=== PATIENT | female | born 1990 | race Caucasian/White ===

== ENCOUNTER 2022-12-22 23:16 | Observation (INO) ==
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
[2022-12-22] MEDS ORDERED: NS 1,000 ML IV 1,000 ML IV ONE (23:57)
[2022-12-22] MEDS ORDERED: COMPAZINE INJ IVP ONE (23:57)
[2022-12-23] MEDS ORDERED: NS 1,000 ML IV 1,000 ML ONE (00:24)
[2022-12-23] MEDS ORDERED: COMPAZINE INJ ONE (00:24)
[2022-12-23 00:33] LABS: BASOPHILS # (AUTO) 0.2 X10^3/uL (0.0-0.1); BASOPHILS % (AUTO) 2.3 % (0.2-1.0); EOSINOPHILS % (AUTO) 0.5 % (0.9-2.9); HEMATOCRIT 39.3 % (36.0-47.0); HEMOGLOBIN 13.7 g/dL (12.0-16.0); LYMPHOCYTES # (AUTO) 1.1 X10^3/uL (1.3-2.9); LYMPHOCYTES % (AUTO) 10.8 % (21.0-51.0); MEAN CORPUSCULAR HEMOGLOBIN 29.4 pg (27.0-34.0); MEAN CORPUSCULAR HGB CONC 34.8 g/dL (33.0-35.0); MEAN CORPUSCULAR VOLUME 84.4 fL (80.0-100.0); MEAN PLATELET VOLUME 7.5 fL (7.4-11.0); MONOCYTES # (AUTO) 0.3 x10^3/uL (0.3-0.8); MONOCYTES % (AUTO) 3.2 % (0.0-13.0); NEUTROPHILS # (AUTO) 8.2 x10^3/uL (2.2-4.8); NEUTROPHILS % (AUTO) 83.2 % (42.0-75.0); RED BLOOD COUNT 4.65 X10^6/uL (3.5-5.4); WHITE BLOOD COUNT 9.9 X10^3/uL (3.6-10.0)
[2022-12-23] MEDS ORDERED: DEMEROL INJ IVP ONE (00:33)
[2022-12-23] MEDS ORDERED: DEMEROL INJ ONE (00:36)
[2022-12-23 00:45] LABS: ALANINE AMINOTRANSFERASE 35 Units/L (12-78); ALKALINE PHOSPHATASE 64 Units/L (46-116); AMYLASE 38 Units/L (25-115); ASPARTATE AMINO TRANSFERASE 22 Units/L (15-37); BLOOD UREA NITROGEN 14 mg/dL (7-18); CALCIUM 8.4 mg/dL (8.5-10.1); CARBON DIOXIDE 28.3 mmol/L (21-32); CHLORIDE 101 mmol/L (98-107); CREATININE 0.62 mg/dL (0.55-1.02); LIPASE 112 Units/L (73-393); SODIUM 137 mmol/L (136-145); TOTAL PROTEIN 7.4 g/dL (6.4-8.2); eGFR NON BLACK RACES > 60 (>60)
[2022-12-23 02:26] LABS: BILIRUBIN,URINE NEGATIVE (NEGATIVE); BLOOD/HEMOGLOBIN,URINE 1+ (NEGATIVE); GLUCOSE, URINE NEGATIVE (NEGATIVE); KETONES,URINE 4+ (NEGATIVE); LEUKOCYTE ESTERASE ,URINE NEGATIVE (NEGATIVE); NITRITES,URINE NEGATIVE (NEGATIVE); PROTEIN,URINE 2+ (NEGATIVE); UROBILINOGEN,URINE NORMAL (NORMAL)
[2022-12-23 02:29] LABS: APPEARANCE,URINE CLEAR (CLEAR); COLOR,URINE YELLOW (YELLOW)
[2022-12-23 02:30] LABS: BACTERIA,URINE NEGATIVE /HPF (NEGATIVE); RBC,URINE 0-2 /HPF (0-3); SQUAMOUS EPITHELIAL CELL,UR FEW /HPF (NEGATIVE)
[2022-12-23] MEDS ORDERED: D5 1/2 NS 1,000 ML 1,000 ML IV SCH ×2 (02:38→15:00)
[2022-12-23] MEDS ORDERED: ZOFRAN INJ 4 MG VIAL IVP PRN ×3 (02:38→14:46)
[2022-12-23] MEDS ORDERED: DEMEROL INJ IVP PRN (02:38)
[2022-12-23] MEDS: D5 1/2 NS 1,000 ML 1,000 ML IV SCH ×2 (09:01→11:04)
[2022-12-23] MEDS ORDERED: BACTROBAN TOPICAL OINT ONE (13:07)
[2022-12-23] MEDS ORDERED: POLYMYXIN B SULFATE ONE (13:07)
[2022-12-23] MEDS ORDERED: FENTANYL VIAL INJ 250 mcg ONE (13:08)
[2022-12-23] MEDS ORDERED: VERSED ONE (13:09)
[2022-12-23] MEDS ORDERED: QUELICIN (OR ANECTINE) ONE (13:09)
[2022-12-23] MEDS ORDERED: REGLAN INJ 10 MG VIAL ONE (13:09)
[2022-12-23] MEDS ORDERED: TORADOL 30 MG VIAL ONE (13:09)
[2022-12-23] MEDS ORDERED: DIPRIVAN VIAL 20 ML ONE (13:09)
[2022-12-23] MEDS ORDERED: ZEMURON 100 MG VIAL ONE (13:09)
[2022-12-23] MEDS ORDERED: BRIDION ONE (13:09)
[2022-12-23] MEDS ORDERED: ZOFRAN INJ 4 MG VIAL ONE (13:09)
[2022-12-23] MEDS ORDERED: LR 1,000 ML IV 1,000 ML IV ONE (13:13)
[2022-12-23 13:18] VITALS: BMI 22.4
[2022-12-23] MEDS ORDERED: CLEOCIN 600 MG IV PREMIX 600 MG/50 ML BAG IV ONE (13:32)
[2022-12-23] MEDS ORDERED: SUPRANE ONE (13:43)
[2022-12-23] MEDS ORDERED: BENADRYL INJ 50 MG VIAL IVP PRN (14:36)
[2022-12-23] MEDS ORDERED: REGLAN INJ 10 MG VIAL IVP PRN (14:36)
[2022-12-23] MEDS ORDERED: BARHEMSYS INJ IVP PRN (14:36)
[2022-12-23] MEDS ORDERED: DILAUDID INJ IVP PRN (14:43)
[2022-12-23] MEDS: DILAUDID INJ IVP PRN ×2 (14:48→14:53)
[2022-12-23 17:23] VITALS: BP 102/64
[2022-12-23] MEDS ORDERED: CLEOCIN 600 MG IV PREMIX 600 MG/50 ML BAG IV SCH (22:00)
== END 2022-12-23 17:30 | disposition home or self-care (01) ==
LOC: MED/SURG 23:20 → ER 23:20 → MED/SURG 12-23 02:29
PROVIDERS: ADMIT Surgery; ATTEND Surgery
DX: R10.84 Generalized abdominal pain; R11.2 Nausea with vomiting, unspecified; R10.11 Right upper quadrant pain; K80.01 Calculus of gallbladder with acute cholecystitis with obstruction

== ENCOUNTER 2022-12-26 10:08 | Observation (INO) ==
[2022-12-26 10:26] VITALS: BMI 21.2
[2022-12-26] MEDS ORDERED: ZOFRAN INJ 4 MG VIAL IVP ONE ×2 (10:29→12:00)
[2022-12-26] MEDS ORDERED: NS 1,000 ML IV 1,000 ML IV ONE (10:29)
[2022-12-26] MEDS ORDERED: ZOFRAN INJ 4 MG VIAL ONE ×2 (10:29→12:00)
[2022-12-26] MEDS ORDERED: NS 1,000 ML IV 1,000 ML ONE (10:30)
--- NOTE | 2022-12-26 10:33 | DR.NAUSEAF ---
HPI Time Seen Time Seen by Provider: 12/26/22 10:30 Primary Care Physician Primary Care Physician: Al Complaints Chief Complaint Doctors Comments: N/V AFTER CHOLECYSTECTOMY ON . SEEN IN [place] ER ON 12-24-[address] OF ABDOMEN AND PELVIS AND SOME FLUID WAS NOTED IN THE POSTOPERATIVE SAC. WAS GIVEN ZOFRAN IN ER AND SENT HOME. PATIENT CONTINUED TO HAVE N/V AND CALLED DR JOHNSON OFFICE AND THEY TOLD HER TO COME HER FOR FURTHER EVALUATION. PATIENT DENIES PAIN. Chief Complaint:: Patient states she had a [place] on Thursday and has been having nausea and vomiting multiple times per day. Seen [place] [facility] diagnosis with possi ble supected "leak" for bowel COVID-19 Coronavirus risk:travel/contact w/high risk person: No Has patient experienced Coronavirus symptoms: No Source History Provided: Patient Mode of Arrival Mode of Arrival: Ambulatory Timing Onset of Chief Complaint: 12/24/22 PMH PMH Past Medical History: No Past Surgical History: Yes Surgical History: Appendectomy, Cholecystectomy and MEDICAID NURSE Surgery Family History History of Family Medical Conditions: Yes Family Medical History: Diabetes Mellitus, Cancer, Coronary Artery Disease and Hypertension Social History Does patient currently use any type of tobacco product: Yes Have you used tobacco products in the last 12 months: Yes Type of Tobacco Use: Cigarettes Does any household member use tobacco: Yes Alcohol Use: None Do you use any recreational Drugs:: Yes (marijuana) Lives With: Spouse Lives Where: Home Travel Risk Coronavirus risk:travel/contact w/high risk person: No Has patient experienced Coronavirus symptoms: No Infectious screening In the last 2 months have you had wt loss of >10#?: NO Have you had fever, night sweats or hemotysis?: No Have you traveled outside the country in the last 6 months?: No Isolation: Standard ROS Review of Systems Constitutional: Other (NAUSEA AND VOMITING) Eyes: No Symptoms Reported ENTM: No Symptoms Reported Respiratoy: No Symptoms Reported Cardiovascular: No Symptoms Reported Gastrointestinal/Abdominal: Nausea and Vomiting Genitourinary: No Symptoms Reported Neurological: No Symptoms Reported Musculoskeletal: No Symptoms Reported Integumentary: No Symptoms Reported Hematologic/Lymphatic: No Symptoms Reported Endocrine: No Symptoms Reported Psychiatric: No Symptoms Reported PE Vital Signs Vitals: Temperature 98.3 F Pulse Rate 87 Respiratory Rate 16 Blood Pressure [Right Arm] 102/64 Blood Pressure 118/82 O2 Sat by Pulse Oximetry 100 General Limitations: No Limitations General Appearance: In Distress (MILD DISTRESS) Head Head Exam: Normal Inspection, Atraumatic and Normocephalic Eyes Eye exam: Normal Appearance, PERRL and EOMI ENT ENT Exam: Normal Exam, Normal Oropharynx and Normal External Ear Exam Neck Neck Exam: Normal Inspection, Full ROM and Trachea Midline Chest Chest Inspection: Normal Inspection and Symmetric Chest Wall Rise Respiratory Respiratory Exam: Normal Lung Sounds Bilat Respiratory Exam: Bilateral: Clear to Auscultation Cardiovascular Cardiovascular Exam: Regular Rate and Normal Rhythm Abdominal Exam Abdominal Exam: Normal Inspection, Normal Bowel Sounds and Soft Rectal Rectal Exam: Deferred External Exam: Female: Deferred Extremities Extremities Exam: Normal Inspection Back Back Exam: Normal Inspection and Full ROM Neurologic Neurological Exam: Alert, Oriented X3 and CN II-XII Intact Psychiatric Psychiatric Exam: Normal Affect and Normal Mood Skin Skin Exam: Warm, Dry and Intact MDM Differential Diagnosis Differential Diagnosis: Considerations may Include:: Gastritis and Other (BILE LEAK,INTRACTABLE NAUSEA AND VOMITING,DEHYDRATION.) COURSE Treatment Treatment: PATIENT WAS GIVEN A ONE LITER BOLUS OF NACL AND ZOFRAN 4MG IV FOR NAUSEA. DR JOHNSON WAS CALLED AT 1100 AM AND HE STATED THAT HE WOULD COME AND SEE THE PATIENT. HE CAME AND EVALUATED PATIENT AND STATED TO REFER THE PATIENT TO OBSERVATION FOR DEHYDRATION S/P CHOLECYSTECTOMY. THE PATIENT WAS MADE AWARE OF THE INTENT. WILL START NACL WITH 20KCL AT 125CC/HOUR. HAD A POTASSIUM OF 3.2. ROR Labs Reviewed Laboratory Results Reviewed?: Yes Result Diagrams: 12/26/22 10:25 12/26/22 10:25 Laboratory: WBC 9.7 X10^3/uL (3.6-10.0) 12/26/22 10:25 RBC 5.17 X10^6/uL (3.5-5.4) 12/26/22 10:25 Hgb 15.3 g/dL (12.0-16.0) 12/26/22 10:25 Hct 44.3 % (36.0-47.0) 12/26/22 10:25 MCV 85.7 fL (80.0-100.0) 12/26/22 10:25 MCH 29.6 pg (27.0-34.0) 12/26/22 10:25 MCHC 34.6 g/dL (33.0-35.0) 12/26/22 10:25 RDW 13.1 % (11.6-16.5) 12/26/22 10:25 Plt Count 300 X10^3/uL (150.0-450.0) 12/26/22 10:25 MPV 7.5 fL (7.4-11.0) 12/26/22 10:25 Neut % (Auto) 69.9 % (42.0-75.0) 12/26/22 10:25 Lymph % (Auto) 22.5 % (21.0-51.0) 12/26/22 10:25 [place] % (Auto) 5.8 % (0.0-13.0) 12/26/22 10:25 Eos % (Auto) 1.4 % (0.9-2.9) 12/26/22 10:25 Baso % (Auto) 0.4 % (0.2-1.0) 12/26/22 10:25 Neut # (Auto) 6.8 x10^3/uL (2.2-4.8) H 12/26/22 10:25 Lymph # (Auto) 2.2 X10^3/uL (1.3-2.9) 12/26/22 10:25 [place] # (Auto) 0.6 x10^3/uL (0.3-0.8) 12/26/22 10:25 Eos # (Auto) 0.1 x10^3/uL (0.0-0.2) 12/26/22 10:25 Baso # (Auto) 0.0 X10^3/uL (0.0-0.1) 12/26/22 10:25 Absolute Nucleated RBC 0.0 /100WBC 12/26/22 10:25 Sodium 138 mmol/L (136-145) 12/26/22 10:25 Corrected Sodium TNP 12/26/22 10:25 Potassium 3.2 mmol/L (3.5-5.1) L 12/26/22 10:25 Chloride 99 mmol/L (98-107) 12/26/22 10:25 Carbon Dioxide 28.6 mmol/L (21-32) 12/26/22 10:25 BUN 5 mg/dL (7-18) L 12/26/22 10:25 Creatinine 0.60 mg/dL (0.55-1.02) 12/26/22 10:25 Est GFR (MDRD) Af Amer > 60 (>60) 12/26/22 10:25 Est GFR (MDRD) Non-Af > 60 (>60) 12/26/22 10:25 Glucose 82 mg/dL (65-99) 12/26/22 10:25 Calcium 8.7 mg/dL (8.5-10.1) 12/26/22 10:25 Corrected Calcium TNP 12/26/22 10:25 Total Bilirubin 0.50 mg/dL (0.2-1.0) 12/26/22 10:25 AST 20 Units/L (15-37) 12/26/22 10:25 ALT 40 Units/L (12-78) 12/26/22 10:25 Alkaline Phosphatase 65 Units/L (46-116) 12/26/22 10:25 Total Protein 7.9 g/dL (6.4-8.2) 12/26/22 10:25 Albumin 4.1 g/dL (3.4-5.0) 12/26/22 10:25 Globulin 3.8 g/dL (2.5-4.5) 12/26/22 10:25 Albumin/Globulin Ratio 1.1 Ratio (1.1-2.1) 12/26/22 10:25 Opioid Opioid Risk Tool Age (Jones box if 16-45): Yes History of Preadolescent Sexual Abuse: No Total: 1 Total Score Risk Category: Low Risk Copyright: Robert VARELA predicting aberrant behaviors Discharge Plan Diagnosis Discharge Problem: Dehydration, Post-cholecystectomy syndrome Discharge Plan Patient Disposition: 09 ADMITTED INPATIENT Condition: Stable Orders to Discharge Patient Discharge Orders: Transfer (Routine); Ordered 12/26/22 Ordered By: Tk Wagner
[2022-12-26 10:37] LABS: BASOPHILS % (AUTO) 0.4 % (0.2-1.0); EOSINOPHILS # (AUTO) 0.1 x10^3/uL (0.0-0.2); EOSINOPHILS % (AUTO) 1.4 % (0.9-2.9); HEMATOCRIT 44.3 % (36.0-47.0); HEMOGLOBIN 15.3 g/dL (12.0-16.0); LYMPHOCYTES # (AUTO) 2.2 X10^3/uL (1.3-2.9); LYMPHOCYTES % (AUTO) 22.5 % (21.0-51.0); MEAN CORPUSCULAR HEMOGLOBIN 29.6 pg (27.0-34.0); MEAN CORPUSCULAR HGB CONC 34.6 g/dL (33.0-35.0); MEAN CORPUSCULAR VOLUME 85.7 fL (80.0-100.0); MEAN PLATELET VOLUME 7.5 fL (7.4-11.0); MONOCYTES # (AUTO) 0.6 x10^3/uL (0.3-0.8); MONOCYTES % (AUTO) 5.8 % (0.0-13.0); NEUTROPHILS # (AUTO) 6.8 x10^3/uL (2.2-4.8); NEUTROPHILS % (AUTO) 69.9 % (42.0-75.0); RED BLOOD COUNT 5.17 X10^6/uL (3.5-5.4); RED CELL DISTRIBUTION WIDTH 13.1 % (11.6-16.5); WHITE BLOOD COUNT 9.7 X10^3/uL (3.6-10.0)
[2022-12-26 10:58] LABS: ALANINE AMINOTRANSFERASE 40 Units/L (12-78); ALBUMIN 4.1 g/dL (3.4-5.0); ALKALINE PHOSPHATASE 65 Units/L (46-116); ASPARTATE AMINO TRANSFERASE 20 Units/L (15-37); BLOOD UREA NITROGEN 5 mg/dL (7-18); CALCIUM 8.7 mg/dL (8.5-10.1); CARBON DIOXIDE 28.6 mmol/L (21-32); CHLORIDE 99 mmol/L (98-107); SODIUM 138 mmol/L (136-145); TOTAL PROTEIN 7.9 g/dL (6.4-8.2); eGFR NON BLACK RACES > 60 (>60)
[2022-12-26] MEDS ORDERED: COMPAZINE INJ IVP ONE (13:01)
[2022-12-26] MEDS ORDERED: COMPAZINE INJ ONE (13:03)
[2022-12-26] MEDS: NS + KCL 20 MEQ/L 1,000 ML IV SCH ×2 (13:49→22:38)
[2022-12-26] MEDS ORDERED: ZOFRAN INJ 4 MG VIAL IVP PRN (13:56)
[2022-12-26] MEDS ORDERED: NORCO 5/325 MG TAB PO PRN (19:58)
[2022-12-26] MEDS: PHENERGAN INJ 25 MG IM PRN (20:45)
[2022-12-27] MEDS ORDERED: ZOFRAN INJ 4 MG VIAL IVP PRN (02:24)
[2022-12-27 06:28] LABS: BASOPHILS % (AUTO) 0.4 % (0.2-1.0); EOSINOPHILS # (AUTO) 0.2 x10^3/uL (0.0-0.2); EOSINOPHILS % (AUTO) 1.7 % (0.9-2.9); HEMOGLOBIN 12.4 g/dL (12.0-16.0); LYMPHOCYTES # (AUTO) 2.5 X10^3/uL (1.3-2.9); LYMPHOCYTES % (AUTO) 26.4 % (21.0-51.0); MEAN CORPUSCULAR HEMOGLOBIN 29.5 pg (27.0-34.0); MEAN CORPUSCULAR HGB CONC 34.4 g/dL (33.0-35.0); MEAN CORPUSCULAR VOLUME 85.8 fL (80.0-100.0); MEAN PLATELET VOLUME 8.1 fL (7.4-11.0); MONOCYTES # (AUTO) 0.5 x10^3/uL (0.3-0.8); MONOCYTES % (AUTO) 5.5 % (0.0-13.0); NEUTROPHILS # (AUTO) 6.3 x10^3/uL (2.2-4.8); RED CELL DISTRIBUTION WIDTH 13.1 % (11.6-16.5); WHITE BLOOD COUNT 9.5 X10^3/uL (3.6-10.0)
[2022-12-27 06:39] LABS: BLOOD UREA NITROGEN 5 mg/dL (7-18); CALCIUM 7.9 mg/dL (8.5-10.1); CARBON DIOXIDE 16.9 mmol/L (21-32); CHLORIDE 105 mmol/L (98-107); CREATININE 0.45 mg/dL (0.55-1.02); MAGNESIUM 1.6 mg/dL (2.0-2.9); SODIUM 137 mmol/L (136-145); eGFR NON BLACK RACES > 60 (>60)
[2022-12-27] MEDS ORDERED: POTASSIUM CHL 40 MEQ/NS 0.45% 500 ML IV PRN (06:54)
[2022-12-27] MEDS ORDERED: POTASSIUM CHL 60 MEQ/NS 0.45% 500 ML IV PRN (06:54)
[2022-12-27] MEDS ORDERED: K-RIDER 10 MEQ/NS 100 ML 10 MEQ/100 ML BAG IV PRN (06:54)
[2022-12-27] MEDS ORDERED: KLOR-CON PO PRN (06:54)
[2022-12-27] MEDS ORDERED: K-DUR TAB 20 MEQ PO PRN (06:54)
[2022-12-27] MEDS ORDERED: POTASSIUM CHLORIDE LIQ 20 MEQ UDC PO PRN (06:54)
[2022-12-27] MEDS ORDERED: MICRO K EXTEN CAP 10 MEQ PO PRN (06:54)
[2022-12-27] MEDS: PHENERGAN INJ 25 MG IM PRN (07:06)
[2022-12-27] MEDS: NS + KCL 20 MEQ/L 1,000 ML IV SCH (07:08)
[2022-12-27] MEDS: MAGNESIUM SULFATE 1 GRAM/100 mL PREMIX 1 G/100 ML BAG IV PRN ×2 (08:52→11:19)
[2022-12-27] MEDS ORDERED: PROTONIX INJ 40 MG VIAL IVP SCH (09:00)
[2022-12-27 12:06] VITALS: BP 119/70
== END 2022-12-27 12:10 | disposition home or self-care (01) ==
LOC: MED/SURG 10:08 → ER 10:08 → MED/SURG 13:38
PROVIDERS: ADMIT Surgery; ATTEND Surgery
DX: Z98.890 Other specified postprocedural states; R11.2 Nausea with vomiting, unspecified; E86.0 Dehydration